=== PATIENT | female | born 1965 | race Caucasian/White ===

== ENCOUNTER 2017-08-19 08:16 | Day surgery (SDC) | payer BC ==
[~2017-08-19 08:16] MED LIST: Metoclopramide 10 MG/2 ML SDV IV PRN; Sodium Chloride 0.9% 1,000 ML IV SCH; Sodium Chloride 0.9% 10 ML Syringe FLUSH PRN
[2017-08-19] MEDS ORDERED: Propofol 200 MG/20 ML SDV ONE (10:00)
--- NOTE | 2017-08-19 18:09 | OR ---
DATE OF OPERATION: 08/19/2017 PREOPERATIVE DIAGNOSIS: Screening colonoscopy. POSTOPERATIVE DIAGNOSIS: Normal colonoscopy. OPERATION: Screening colonoscopy. COMPLICATIONS: None. DRAINS: None. SPECIMENS: None. ESTIMATED BLOOD LOSS: Zero. ANESTHESIA: General propofol anesthesia. INDICATION: Ms. Brown is a 52-year-old female here for a primary screening colonoscopy. She is asymptomatic with no family history. She is average risk. The above-mentioned procedure was explained. The risks, benefits, complications were explained. The patient understood and agreed and was brought to the operating room. DESCRIPTION OF PROCEDURE: The patient was brought to the operating room, placed in the left lateral decubitus position on the operating room table. Satisfactory general propofol anesthesia was administered. We began by performing a rectal examination which was within normal limits. I then placed the endoscope by finger introduction into the rectum and subsequently advanced this to the level of the cecum. There was a fair amount of tortuosity of the colon, however, it was manageable. The cecum was identified by the appendiceal orifice as well as the ileocecal valve. Intubation of the ileocecal valve revealed no abnormalities in the distal ileum. The remainder of the colonic mucosa was evaluated on withdrawal. There were no polyps, no telangiectasias, no neoplastic growths, no diverticula. The colonic mucosa was normal. Next, we performed a retroflexion maneuver in the rectum, and this appeared normal with possible old internal hemorrhoids, however, no apparent internal hemorrhoids. The colon was subsequently decompressed and the endoscope was withdrawn. The patient tolerated the procedure well. There were no complications. Instrument count was correct. The patient was awoken in the OR and taken to PACU for recovery. REGINALDO /[id number]
== END 2017-08-19 11:31 | disposition home or self-care (01) ==
LOC: LB.SDS 08:16
PROVIDERS: ATTEND Surgery
DX: Z12.11 Encounter for screening for malignant neoplasm of colon (principal); Z88.5 Allergy status to narcotic agent
CPT/HCPCS: 45378; J2704; J7040; J7030

== ENCOUNTER 2021-05-06 07:39 | Emergency (ER) | payer BC ==
[2021-05-06] MEDS ORDERED: Penicillin V Potassium 250 MG Tab ONE (08:00)
[2021-05-06] MEDS ORDERED: Acetaminophen/oxyCODONE 325-5 MG Tab ONE (08:00)
== END 2021-05-06 08:05 | disposition home or self-care (01) ==
LOC: LB.ED 07:39
DX: K04.7 Periapical abscess without sinus (principal); Z88.5 Allergy status to narcotic agent
CPT/HCPCS: 99282; A9270; 99283